=== PATIENT | female | born 2000 | race Caucasian/White ===

== ENCOUNTER 2023-05-19 23:09 | Emergency (ER) | payer OTHER, SELFPAY ==
--- NOTE | ~2023-05-19 | XR_ITS ---
XR ankle LT min 3V DATE: 05/19/2023 23:33 INDICATION: Twisted ankle. Lateral pain. TECHNIQUE: 4 views COMPARISON: None FINDINGS: Mild lateral soft tissue swelling. No fracture or dislocation of the ankle or disruption of the ankle mortise is detected. IMPRESSION: Mild lateral soft tissue swelling Reviewed, dictated and finalized at location A.
[2023-05-19 23:21] VITALS: BP 118/68; PULSE 67; RESP 16; TEMP 36.7; O2SAT 100
--- NOTE | 2023-05-20 00:20 | ED.LOWEXIN ---
HPI - Extremity Injury (Lower) General Chief Complaint: Extremity Injury, Lower Stated Complaint: Left ankle injury History of Present Illness HPI Narrative: 23-year-old female reports for evaluation for left ankle pain after an injury that occurred 3 hours ago. Patient states she was standing on a chair and stepped down and rolled her ankle. She is reporting pain with ambulating. She is complaining of pain to the lateral aspect of her ankle. No other injuries acquired. Related Data Allergies Allergy/AdvReac Type Severity Reaction Status Date / Time No Known Allergies Allergy Verified 05/19/23 23:20 Review of Systems Review of Systems: CONSTITUTIONAL: Denies fever, chills EYES: Denies visual changes, redness, or discharge. ENT: Denies rhinorrhea, congestion, sore throat, or otalgia. CARDIOVASCULAR: Denies chest pain, palpitations, or edema. RESPIRATORY: Denies cough or dyspnea. GASTROINTESTINAL: Denies abdominal pain, nausea, vomiting, or diarrhea. GENITOURINARY: Denies dysuria or hematuria. SKIN: Denies rash or itching. MUSCULOSKELETAL: See HPI NEUROLOGIC: Denies headache, numbness, dizziness, or weakness. PSYCHIATRIC: Denies anxiety or depression. Exam Narrative: GENERAL: Well-appearing, in no acute distress. HEAD: Normocephalic NECK: Supple. CHEST: No respiratory distress. Clear to auscultation, no adventitious breath sounds. HEART: Regular rate and rhythm. No murmur heard. Normal peripheral pulses. EXTREMITIES: LLE: Tenderness and edema over the lateral malleolus. Limited ROM of ankle secondary to pain. No warmth or erythema. Compartments soft. Pt able to wiggle toes. Ambulating with slight limp. No tenderness to proximal tibia or fibula. Negative high squeeze. DP pulse 2+. Cap refill <2. Sensation intact. SKIN: Warm, dry, no rash. NEURO: No focal deficits. Alert and oriented x3. PSYCH: Normal mood and affect. Course Vital Signs Vital signs: Vital Signs Temperature 98.1 F 05/19/23 23:21 Pulse Rate 67 05/19/23 23:21 Respiratory Rate 16 05/19/23 23:21 Blood Pressure 118/68 05/19/23 23:21 Pulse Oximetry 100 05/19/23 23:21 Oxygen Delivery Room Air 05/19/23 23:21 Temperature 98.1 F 05/19/23 23:21 Pulse Rate 67 05/19/23 23:21 Respiratory Rate 16 05/19/23 23:21 Blood Pressure 118/68 05/19/23 23:21 Pulse Oximetry 100 05/19/23 23:21 Oxygen Delivery Room Air 05/19/23 23:21 MDM - Extremity Injury (Lower) MDM Narrative Medical decision making narrative: 23-year-old female reports for evaluation for left ankle pain after she rolled it 3 hours prior to arrival. Vital stable and patient is well-appearing on exam. Exam significant for tenderness and edema over the lateral malleolus. She is neurovascularly intact and able to ambulate. X-rays reviewed by myself and Dr. Dorsey which show no acute osseous abnormality. Imaging discussed. Patient placed in an Juanjose wrap and provided Tylenol. Encouraged Tylenol, ibuprofen, RICE and close follow-up with PCP. Strict ED return precautions discussed. She is agreeable to plan verbalized understanding. Discharged in stable condition. Medical Records Attestation: I reviewed the patient's medical records. Discharge Plan Discharge Clinical Impression: Ankle sprain and strain Patient Disposition: Home, Self-Care Condition: Stable Instructions: Antibiotic Form, Ankle Sprain (DC) Additional Instructions: Your evaluated emergency department for ankle pain. Your x-rays do not show a fracture or dislocation. Please take Tylenol, ibuprofen, rest, ice, elevate and compress your ankle. Please follow-up with your primary care provider within the following week for reevaluation. Return to the emergency department if you develop fever, significantly worsening pain, hot ankle, cold foot, or other concerning symptoms Follow-up/Referrals: OLIMPIA ANG [Primary Care Provider] -
[2023-05-20] MEDS: ACETAMINOPHEN 500 MG TABLET 1000 MG PO (00:41)
== END 2023-05-20 00:45 | disposition home or self-care (01) ==
PROVIDERS: Emergency Provider Physician Assistant
DX: S93.402A Sprain of unspecified ligament of left ankle, initial encounter (principal); X50.0XXA Overexertion from strenuous movement or load, initial encounter
CPT/HCPCS: 73610; 99283; A9270